=== PATIENT | female | born 1925 | race Caucasian/White ===

== ENCOUNTER 2016-03-24 22:45 | Emergency (ER) | payer MEDICARE ==
--- NOTE | 2016-03-24 22:59 | ERNOTE ---
Head Injury HPI - General Injury to: head, face, lip, nose Time Seen by Provider: 03/24/16 22:51 Source: EMS, snf records Exam Limitations: dementia - Immun/Allergies/Home Medications Immunization: IMMUNIZATION HX Immunizations Up to Date Yes Allergies/Adverse Reactions: Allergies Allergy/AdvReac Type Severity Reaction Status Date / Time Penicillins Allergy Verified 10/01/14 11:25 Home Medications: HOME MEDICATIONS Acetaminophen [Feverall] 650 mg RC DAILY PRN 09/25/15 [Last Taken Unknown] Acetaminophen [Tylenol] 650 mg PO Q4H PRN 09/25/15 [Last Taken Unknown] Aspirin 162 mg PO DAILY 09/25/15 [Last Taken Unknown] Docusate Sodium 20 ml PO DAILY 09/25/15 [Last Taken Unknown] Docusate Sodium [Diocto] 10 ml PO QPM 09/25/15 [Last Taken Unknown] Famotidine 2.5 ml PO BID 09/25/15 [Last Taken Unknown] Isosorbide Mononitrate [Monoket] 10 mg PO BID 09/25/15 [Last Taken Unknown] LORazepam [Ativan] 0.5 mg PO Q4H PRN 09/25/15 [Last Taken Unknown] LORazepam [Ativan] 1 mg PO DAILY 09/25/15 [Last Taken Unknown] Lisinopril [Zestril] 40 mg PO DAILY 09/25/15 [Last Taken Unknown] Magnesium Hydroxide [Milk Of Magnesia] 30 ml PO Q48H 09/25/15 [Last Taken Unknown] Metoprolol Tartrate [Lopressor] 50 mg PO BID 09/25/15 [Last Taken Unknown] Sennosides [Senna] 10 ml PO BID 09/25/15 [Last Taken Unknown] diphenhydrAMINE HCL [Benadryl] 25 mg PO Q6H PRN 09/25/15 [Last Taken Unknown] - History of Present Illness Narrative: Pt was being walked by staff at the IN and she tripped and fell on her face. they believe she may have had a short LOC but are not sure Occurred: just prior to arrival Location Occurred: home [facility] Severity: moderate Head Injury Location: facial, temporal Method of Injury: Reports: fell Reason for Fall: Reports: tripped Loss of Consciousness: Reports: brief (seconds) Review of Systems - Narrative Narrative: Pt has severe dementia and does not communicate. IN staff denies any changes in behavior or recent illness - Patient's Past Medical History Patient History - Medical: Alzheimer's Disease, Osteoarthritis Patient History - Cardiac/Respiratory: CVA/Stroke, Hypertension, Hyperlipidemia Patient History - Cancer: No Hx of Cancer Patient History - Other: None - Social History Living Situations: snf - Immunizations Immunizations Up to Date: Yes Physical Exam - Physical Exam General Appearance: Present: mild distress, irritable, other - follows commands at times but not consistantly Eye Exam: Normal inspection: left - Pupil reactive but slow, Other: right - unable to see right eye due to swelling of lid Ears, Nose, Throat: Present: other - dried blood in left nare, no clear drainage or septal hematoma noted. No hemotympanum noted. Neck: Present: normal inspection, nontender, supple Respiratory: Present: no respiratory distress, normal breath sounds Cardiovascular/Chest: Present: regular rate, rhythm - -distant heart sounds Back Exam: Present: normal inspection, no vertebral tenderness Extremity Exam: Present: non-tender, no edema, normal range of motion Neurological Exam: Present: other - pt non communicative except for single words randomly Skin Exam: Present: other - bruising and swelling on right temporal and periorbital area, laceration over right brow 1 cm. laceration on right side of upper lip 2 cm. upper lip intraoral laceration 2.5 cm multiple bruises on forearms. ED Progress - Results and Orders Patient's Lab Results:: I have reviewed the patient's lab results. Results and Orders: Laboratory Tests 03/24/16 03/24/16 03/24/16 23:05 23:05 23:10 WBC 9.9 Hgb 12.9 Hct 40.0 Plt Count 210 Sodium 141 Potassium 4.7 H Chloride 106 Carbon Dioxide 27.3 Anion Gap 12.4 BUN 39 H Creatinine 1.39 Est GFR (Non-Af Amer) 38 L D BUN/Creatinine Ratio 28.1 H Random Glucose 95 Calcium 9.2 Urine Color Yellow Urine Appearance Clear Urine pH 6.5 Ur Specific [place] 1.015 Urine Protein 15 H Urine Glucose (UA) Negative Urine Ketones Negative Urine Blood 25 H Urine Nitrate Negative Urine Bilirubin Negative Prot Sulfosalicylic Acd Negative Urine Urobilinogen Normal Ur Leukocyte Esterase 25 H Urine RBC 0-5 Urine WBC 5-10 H Ur Epithelial Cells 0-5 Urine Bacteria Trace Hyaline Casts 0-5 H Urine Culture Comments Culture to follow - Vital Signs Patient's Vital Signs:: I have reviewed the patient's vital signs. - CT/Ultrasound CT/Ultrasound Narrative: CT maxillofacial: slight deformity right nasal bone with fracture of left nasal bone. Right frontal scalp and right periorbital STS. 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 subtle epidural hematoma adjacent to the right temporal lobe 0.5 x 1.7 cm - Progress/Reassessment Progress Note-Subjective: 03/25/16 00:58 Spoke to the patients Nephew who is also her medical POA. Due to her current poor quality of life, age and co-morbidities he does not want any further evaluation or treatment for her epidural hematoma. Will initiate comfort measures at the IN. Procedures Right Frontal Date and Time: LACERATION REPAIR Anesthesia: Lidocaine w/ Epi I & D Prep: betadine prep Length of Repair/Wound (cm): 1 Wound's Depth/Shape: into subcutaneous, flap - "V" shaped Wound Explored: clean Wound Intervention: irrigated w/saline Distal NVT: neuro/vasc intact Wound Repaired With: sutures Suture Size/Type: 4-0, nylon Number of Sutures: 3 Layer Closure: Simple Complications: Pt daisy procedure well Right Face Date and Time: RIGHT UPPER LIP LACERATION Anesthesia: Lidocaine w/ Epi, Other - facial nerve block I & D Prep: betadine prep, sterile drapes applied Length of Repair/Wound (cm): 2.5 - intraoral and 2 cm externally Wound's Depth/Shape: other - through and through. Wound Explored: clean, to base Wound Intervention: irrigated w/saline Distal NVT: neuro/vasc intact Suture Size/Type: 4-0, nylon Number of Sutures: 5 - external Layer Closure: Intermediate Deep Layer Suture Size/Type: 4-0, other - Ethilon Number Deep Layer Sutures: 4 Estimated blood loss (ml): 30 Complications: Pt daisy procedure well Departure Clinical Impression: Facial laceration Qualifiers: Encounter type: initial encounter Qualified Code(s): S01.81XA - Laceration without foreign body of other part of head, initial encounter Laceration of oral cavity Qualifiers: Encounter type: initial encounter Qualified Code(s): S01.512A - Laceration without foreign body of oral cavity, initial encounter - Departure Disposition: [facility] Condition: Stable Instructions: Mouth Laceration, [id number], Facial Laceration, Intracranial Hemorrhage Additional Instructions: comfort measures. have sutures taken out in 5-7 days. suture care BID.
[2016-03-24 23:13] LABS: Hemoglobin 12.9 gm/dL (12.5-16.0); Mean Cell Volume 93.2 fl (78-100); Mean Corpuscular Hemoglobin 30.1 pg (27-31); Mean Corpuscular Hgb Conc 32.3 g/dl (32-36); Mean Platelet Volume 12.1 fl (6.0-9.5); Neutrophil # 5.2 K/mm3 (1.3-6.0); Neutrophil % 52.9 % (42-75.0); Platelet Count 210 K/mm3 (150-450); Red Blood Count 4.29 M/mm3 (4.2-5.4); Red Cell Distribution Width 14.3 % (11.5-14.0); White Blood Count 9.9 K/mm3 (4.0-10.5)
[2016-03-24 23:22] LABS: Urine Bilirubin Negative (NEGATIVE); Urine Blood 25 /ul (NEGATIVE); Urine Ketone Negative (NEGATIVE); Urine Nitrite Negative (NEGATIVE); Urine Protein 15 mg/dL (NEGATIVE); Urine Specific Gravity 1.015 SP.GR. (1.005-1.010); Urine Urobilinogen Normal (NORMAL); Urine pH 6.5 pH (5.0-7.0)
[2016-03-24 23:29] LABS: Anion Gap 12.4 mmol/L (6.8-13.8); BUN/Creatinine Ratio 28.1 (9.0-21.6); Blood Urea Nitrogen 39 mg/dL (3-23); Calcium * 9.2 mg/dL (7.9-10.9); Carbon Dioxide 27.3 mmol/L (24-32.6); Chloride 106 mmol/L (97-106); Glucose * 95 mg/dL (70-110); Potassium 4.7 mmol/L (3.4-4.6); Sodium 141 mmol/L (132-142)
[2016-03-24 23:39] LABS: Urine Appearance Clear; Urine Bacteria TRACE; Urine Color Yellow; Urine Hyaline Cast 0-5 /LPF; Urine RBC 0-5 /hpf (0-5)
[2016-03-25] MEDS ORDERED: LIDOCAINE HCL/EPINEPHRINE 30 ML VIAL IJ ONE (00:22)
[2016-03-25 01:17] VITALS: BP 156/62
== END 2016-03-25 01:41 ==
LOC: ER 22:45
PROC: 0JQ10ZZ Repair Face Subcutaneous Tissue and Fascia, Open Approach (ICD-10-PCS; principal; 2016-03-24)
PROC: 0CQ0XZZ Repair Upper Lip, External Approach (ICD-10-PCS; 2016-03-24)
DX: S01.81XA Laceration without foreign body of other part of head, initial encounter (principal); S01.512A Laceration without foreign body of oral cavity, initial encounter; W01.0XXA Fall on same level from slipping, tripping and stumbling without subsequent striking against object, initial encounter; Y93.01 Activity, walking, marching and hiking; Y92.129 Unspecified place in nursing home as the place of occurrence of the external cause